=== PATIENT | male | born 1940 | race Hispanic/Latino ===

== ENCOUNTER → 2024-10-11 | Outpatient (CLI) | payer OTHER ==
--- NOTE | 2024-10-12 03:12 | HMCSR ---
APPROVED REPORT EXAM: Two-dimensional and M-mode echocardiogram with Doppler and color Doppler. INDICATION ICD: I48.0 Chronic AF 2D Dimensions RVDd4.4 cmLVEF(%)59.0 (>50%)LVED Vol(simp.)92.0 mL IVSd0.9 (0.7-1.1cm)FS(%)31 %LVES Vol(simp.)38.8 mL LVDd5.1 (3.8-5.6cm)LA (2D)4.3 (1.6-4.0cm)LVEF(%, simp.)57 % PWd0.8 (0.7-1.1cm)Ao Root(2D)3.4 (2.0-3.7cm)LA ESV INDEX (4CH)38.50 mL/m2 IVSs1.2 cmLVOT diam2.3 (1.8-2.4cm)LA ESV INDEX (2CH)53.50 mL/m2 LVDs3.5 (2.5-4.0cm)LA ESV INDEX (BP)48.70 mL/m2 PWs1.3 cm Aortic Valve AoV VTI0.3 mAo Mean GR5.0 mmHgLVOT VTI0.22 m [place] (VMAX)2.6 cm2Al P1/2T906 msAVA (VTI) 2.6 cm2 Mitral Valve MV E Vmax51.4 cm/sDECEL Unnm510 ms MV A Vmax67.4 cm/sP 1/2 T91 ms E/A ratio0.8MVA (PHT)2.4 cm2 MR Max PG30 mmHg TDI E/E' Wmsakk56.9E/E' Lateral9.3 Medial E' Peak V4.70 cm/sLateral E' Peak V5.50 cm/s Pulmonary Valve PV VTI0.23 mPV Mean GR2 mmHg PI End Chikis. Kam 138.5 cm/s Tricuspid Valve TR Vmax2.7 m/sRAP (EST) 8 yvFiTHHK19.5 mmHg TR Peak GR29.5 mmHg Left Ventricle Left ventricular cavity size is normal. Normal wall motion There is normal left ventricular wall thic kness. LVEF is 55-60%. Indeterminate diastolic function Right Ventricle The right ventricle is mildly dilated. The right ventricular systolic function is normal. Atria The left atrium is severely dilated.LASVI 49mL/m. The right atrium size is normal. Aortic Valve Aortic valve is trileaflet and opens well. Trace of aortic regurgitation is present. There is no aort ic valvular stenosis. Mitral Valve Mitral valve leaflets appear normal. There is trace of mitral valve regurgitation noted. There is no mitral valve stenosis. Tricuspid Valve The tricuspid valve is normal in structure and function. There is mild tricuspid valve regurgitation noted. Pulmonic Valve The pulmonary valve is not well seen There is trace of pulmonic valvular regurgitation. Great Vessels The aortic root is normal in size. IVC is normal in size and collapses <50% with inspiration. Pericardium Prominent anterior epicardial fat pad is present. No pericardial effusion. Other Information Quality : Adequate Conclusion LVEF is 55-60%. Indeterminate diastolic function There is normal left ventricular wall thickness. Left ventricular cavity size is normal. Normal wall motion The right ventricle is mildly dilated. The left atrium is severely dilated.LASVI 49mL/m. No pericardial effusion. Normal pulmonary pressures Study quality was adequate
== END | disposition home or self-care (01) ==
LOC: RAH 13:17
PROVIDERS: ATTEND Internal Medicine
DX: I07.1 Rheumatic tricuspid insufficiency (principal); I48.20 Chronic atrial fibrillation, unspecified
CPT/HCPCS: 93306